=== PATIENT | female | born 1995 | race Caucasian/White ===

== ENCOUNTER → 2017-02-17 | Outpatient (CLI) | payer OTHER ==
[~2017-02-17] MED LIST: ALBUAER2 INH
== END | disposition home or self-care (01) ==
LOC: C.PAPS 11:25
PROVIDERS: ATTEND Obstetrics & Gynecology
DX: Z12.4 Encounter for screening for malignant neoplasm of cervix (principal); R87.612 Low grade squamous intraepithelial lesion on cytologic smear of cervix (LGSIL)

== ENCOUNTER → 2017-02-17 | Outpatient (CLI) | payer OTHER ==
[2017-02-19 00:33] LABS: CHLAMYDIA TRACH RNA*** NOT DETECTED (NOT DETECTED); GC (NEIS GONORRHOEAE)RNA** NOT DETECTED (NOT DETECTED)
== END | disposition home or self-care (01) ==
LOC: C.LABSPEC 10:55
PROVIDERS: ATTEND Obstetrics & Gynecology
DX: Z01.419 Encounter for gynecological examination (general) (routine) without abnormal findings (principal)

== ENCOUNTER → 2018-02-25 | Outpatient (CLI) | payer OTHER | END | disposition home or self-care (01) | LOC: C.LABSPEC 14:00 | PROVIDERS: ATTEND Obstetrics & Gynecology | DX: Z12.4 Encounter for screening for malignant neoplasm of cervix (principal); Z11.51 Encounter for screening for human papillomavirus (HPV) ==

== ENCOUNTER 2022-04-17 05:36 | Inpatient (IN) ==
--- NOTE | 2022-04-10 15:34 | History & Physical Report ---
Date of Service April 10, 2022 Assessment & Plan (1) Previous delivery affecting , antepartum: Plan: IUP at 39 weeks with prior section because of nonreassuring heart rate pattern at 41 weeks gestation. Short interpregnancy interval. Patient is scheduled for repeat section. The procedure and its risks were reviewed with the patient and all of her questions were answered to her satisfaction and she is willing to proceed. History of Present Illness Primary Care Provider: Tio Lea MD Patient is a 26-year-old 2 para 1-0-0-1 female EDC 04/24/2022 who presents at 39 weeks for repeat section. otherwise has been uncomplicated other than she has had a short interpregnancy interval. Prior section was done because of nonreassuring heart rate pattern. She also had issues with adequate pain relief with her epidural. GBS is negative. Allergies Allergy/AdvReac Type Severity Reaction Status Date / Time No Known Drug Allergies Allergy Verified 04/09/22 08:49 Home Medications Medication Instructions Recorded Confirmed Type prenat.vits,abena,whm-lzkq-htzvo 1 tab PO DAILY 02/01/20 04/09/22 History Patient History Medical History LGSIL on Pap smear of cervix Pneumonia Seasonal allergies Varicella vaccine Surgical History (Updated 09/08/21 @ 09:57 by Park Law) H/O myringotomy H/O wisdom tooth extraction S/P section S/P tonsillectomy and adenoidectomy Family History (Updated 09/08/21 @ 09:51 by Park Law) Grandmother (Maternal) Breast cancer Hypertension Diabetes Aunt Breast cancer Denies family history of Ovarian cancer Colorectal cancer Social History (Updated 09/08/21 @ 09:52 by aPrk Law) Smoking Status: Never smoker Second Hand Exposure: No; Hx Alcohol Use: No Hx Substance Use: No Preferred Language: Urdu Communication Ability: Effective Beliefs That Will Affect Care: None marital status: marital status details: Kirk Ann (26) [phone] Current Living Situation: Spouse and Family Current Living Situation Comment: lives with spouse, child, 1 dog, 1 cat, spouse to change litter. 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
--- NOTE | 2022-04-13 11:35 | Anesthesiology Consultation ---
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 Patient is fully vaccinated for COVID. No known Covid positive exposures or Covid related symptoms. Pt did test Covid positive 02/27/22. At the time - patient had SOB, body aches and cough- symptoms have since resolved. Per 90 day protocol, patient does not need additional preop Covid testing or additional Covid precautions. History Surgery Operation Date: 04/17/22 09:00 Proposed Procedures p Section (Delivery of Baby Through Abdominal Incision) - Leann Kelly MD, FACOG Height/Weight Height: 5 ft 4 in Weight: 68.039 kg Allergies Allergy/AdvReac Type Severity Reaction Status Date / Time No Known Drug Allergies Allergy Verified 04/13/22 10:49 Medications Home Medications Medication Instructions Recorded Confirmed Last Taken prenat.vits,abena,dgi-ushq-nnywb 1 tab PO DAILY 02/01/20 04/13/22 1 Day Ago ~02/06/21 Past Medical History Medical History History of COVID-19 February- TESTED @ [facility] -COUGH, SOB, BODY ACHES, NO CURRENT ISSUES Seasonal allergies Past Family History Family History Grandmother (Maternal) Breast cancer Hypertension Diabetes Aunt Breast cancer Denies family history of Ovarian cancer Colorectal cancer Past Surgical History Surgical History H/O myringotomy H/O wisdom tooth extraction S/P section S/P tonsillectomy and adenoidectomy Social History Smoking Status: Never smoker Do You Dip or Chew Tobacco: No Hx Alcohol Use: No Hx Substance Use: No substance use type: does not use
[2022-04-17] MEDS ORDERED: LACTATED RINGER'S 1,000 ML IV SCH ×2 (05:45→06:00)
[2022-04-17] MEDS ORDERED: CITRIC ACID/SODIUM CITRATE 15 ML UDC PO SCH (06:00)
[2022-04-17] MEDS ORDERED: ceFAZolin 2,000 MG in SYRINGE 0 ML IV SCH (06:00)
[2022-04-17 06:29] LABS: Hematocrit (blood only) 33.4 % (37-47); Hemoglobin 11.1 g/dL (12.0-16.0); Mean Corpuscular Hemoglobin 30.6 pg (25-34); Mean Corpuscular Hgb Conc 33.2 g/dL (32-36); Mean Platelet Volume 10.3 fL (7.4-10.4); Platelet Count 275 K/uL (130-400); RDW Coefficient of Variation 13.8 % (11.5-14.5); RDW Standard Deviation 46.1 fL (36.4-46.3); Red Blood Count 3.63 M/uL (4.2-5.4); White Blood Count 14.92 K/uL (4.8-10.8)
[2022-04-17] MEDS ORDERED: MoRPHine SULFATE PF 1 MG/ML 10 ML AMP/VIAL ONE (06:52)
[2022-04-17] MEDS ORDERED: ONDANSETRON INJ 2 MG/ML 2 ML VIAL ONE (07:17)
[2022-04-17] MEDS ORDERED: OXYTOCIN 10 UNITS/ML 10ML VIAL ONE (07:17)
[2022-04-17] MEDS ORDERED: LIDOCAINE 2% MPF LOCAL 5 ML VIAL INFIL ONE (07:17)
[2022-04-17] MEDS ORDERED: METOCLOPRAMIDE HCL INJ 5 MG/ML 2 ML VIAL ONE (07:17)
[2022-04-17] MEDS ORDERED: PROPOFOL IV EMULSION 10 MG/ML 20 ML VIAL IV ONE (07:17)
[2022-04-17] MEDS ORDERED: LIDOCAINE/EPINEPHRINE 1% 20 ML VIAL ONE (07:28)
[2022-04-17] MEDS ORDERED: TRIAMCINOLONE ACET 40 MG/ML VIAL IM ONE (07:29)
--- NOTE | 2022-04-17 07:30 | History & Physical Bridge Note ---
Date of Service April 17, 2022 History & Physical Bridge Note I have examined the patient, reviewed the History & Physical and in the interval since the performance of the History & Physical I have noted the following changes of clinical significance: no changes noted
[2022-04-17 07:41] LABS: ALC (manual) 2.73 K/uL (1.2-3.4); ANC (manual) 9.98 K/uL (1.4-6.5); Eosinophils # (manual) 0.25 K/uL (0-0.5); Eosinophils % (manual) 1.7 %; Lymphocytes # (manual) 2.73 K/uL (1.2-3.4); Lymphocytes % (manual) 18.3 %; Monocytes # (manual) 1.82 K/uL (0.11-0.59); Monocytes % (manual) 12.2 %; Myelocytes # (manual) 0.13 K/uL (0-0); Myelocytes % (manual) 0.9 %; Neutrophils # (manual) 9.98 K/uL (1.4-6.5); Neutrophils % (manual) 66.9 %
[2022-04-17] MEDS ORDERED: NALOXONE HCL 0.08 MG in SYRINGE 1.8 ML IV PRN (08:09)
[2022-04-17] MEDS ORDERED: NALBUPHINE HCL INJ 10 MG/ML AMP IV PRN (08:09)
[2022-04-17] MEDS ORDERED: PROMETHAZINE HCL 12.5 MG in SODIUM CHLORIDE 0.9% 50 ML IV PRN (08:09)
[2022-04-17] MEDS ORDERED: NALOXONE HCL 1 MG in SODIUM CHLORIDE 0.9% 1000ML 1,000 ML IV PRN (08:09)
[2022-04-17] MEDS ORDERED: MoRPHine SULFATE PF 1 MG/ML 10 ML AMP/VIAL INT SPINAL ONE (08:09)
[2022-04-17] MEDS ORDERED: ePHEDrine sulfate 50 MG/ML AMP IV PRN (08:09)
[2022-04-17] MEDS ORDERED: diphenhydrAMINE 50 MG/ML VIAL IV PRN ×2 (08:09→09:02)
[2022-04-17] MEDS ORDERED: LACTATED RINGER'S 500 ML IV PRN (08:09)
[2022-04-17] MEDS ORDERED: ONDANSETRON INJ 2 MG/ML 2 ML VIAL IV PRN (08:09)
[2022-04-17] MEDS ORDERED: NALOXONE HCL 0.4 MG/1 ML VIAL/CARP IV PRN (08:09)
[2022-04-17] MEDS ORDERED: MoRPHine SULFATE 2 MG/ML CARP IV PRN (08:09)
[2022-04-17] MEDS ORDERED: PHENYLEPHRINE 100MCG/ML 5ML SYR ONE (08:14)
[2022-04-17] MEDS ORDERED: ePHEDrine sulfate 50 MG/ML SYR ONE (08:14)
[2022-04-17] MEDS ORDERED: NO NARCOTICS OR SEDATIVES SCH (08:15)
[2022-04-17] MEDS ORDERED: SODIUM CHLORIDE 0.9% 1000ML 1,000 ML IV SCH (08:15)
[2022-04-17] MEDS ORDERED: DC INTRASPINAL MORPHINE SCH (08:15)
--- NOTE | 2022-04-17 08:41 | Post Operative Brief Note ---
PG Immediate Post Op with CF Date of Surgery April 17, 2022 Pre & Post Diagnosis Operation Date: 04/17/22 07:30 Pre-Op Diagnosis: Prior section, desires repeat Post-Op Diagnosis: Same as pre-op I identified the patient and participated in the time-out.: Yes Procedure Operation Date: 04/17/22 07:30 Actual Procedures p Repeat Section, Live male child at 0803(Bilateral) - Leann Coles MD, FACOG Surgeon Leann Kelly MD, FACOG Training And Development Head Marielle Carrington MD Estimated Blood Loss 500 Findings Consistent with Post-Op Diagnosis Specimens Specimen Description: A: Placenta-hold B: Cord blood Drains Franco Catheter (Inserted after spinal, patent and draining clear yellow urine throughout procedure) Anesthesia Type Spinal Complications none Disposition Accompanied Patient To Recovery: Yes
[2022-04-17] MEDS ORDERED: PRENATAL VITAMIN 1 TAB PO SCH (09:00)
[2022-04-17] MEDS ORDERED: SENNA 8.6 MG TAB PO PRN (09:02)
[2022-04-17] MEDS ORDERED: MAGNESIUM HYDROXIDE SUSP 30 ML UDC PO PRN (09:02)
[2022-04-17] MEDS ORDERED: HYDROCORTISONE ACETATE 25 MG SUPP PR PRN (09:02)
[2022-04-17] MEDS ORDERED: BENZOCAINE 20% AER SPR 82.5 GM CAN EXT PRN (09:02)
--- NOTE | 2022-04-17 09:31 | Operative Report ---
PG Post Operative Report Pre & Post Diagnosis Operation Date: 04/17/22 07:30 Pre-Op Diagnosis: Prior section, desires repeat Post-Op Diagnosis: Same as pre-op I identified the patient and participated in the time-out.: Yes Procedure Operation Date: 04/17/22 07:30 Actual Procedures p Repeat Section, Live male child at 0803(Bilateral) - Leann Coles MD, FACOG Surgeon Leann Kelly MD, FACOG Nutritionalist Marielle Carrington MD Estimated Blood Loss 500 Findings Consistent with Post-Op Diagnosis Gravid uterus consistent with term in size. Bilateral ovaries all the tubes were grossly normal. Specimens placenta Drains Franco to straight drainage Anesthesia Type Spinal Complications none Disposition Accompanied Patient To Recovery: Yes Disposition: L&D Indications Patient is a 2 para 1-0-0-1 white female EDC of 04/24/2022 who presents at 39 weeks for repeat section. Prior section was done because of arrest of descent. Description of Procedure After the patient received adequate subarachnoid block she was prepped and d raped in usual sterile fashion. A low transverse incision was made below her prior scar. The fascia was then entered with a scalpel and extended with Cox scissors. The edges were then grasped with Jojo clamps and the underlying rectus muscles bluntly sharply dissected off of the overlying fascia. The rectus muscles were then divided with a scalpel. The abdominal cavity was entered at this time. Taking care to bluntly dissect the bladder off of the rectus muscles, the rectus muscles were divided with Metzenbaum scissors. The bladder was then taken down off the anterior surface of the uterus. Was placed behind the bladder blade. The lower uterine segment was then entered with a scalpel and extended transversely. Membranes were ruptured for clear fluid. The infant was delivered from the vertex presentation with moderate fundal pressure. The rest of the delivered easily and was vigorous upon delivery. The cord was clamped and cut and the infant handed off to the nursery team for further evaluation. Placenta was then manually removed and the uterus exteriorized and covered with a clean lap sponge. The uterine cavity was explored and found to be free of any placental tissue or membranes. Uterus was closed in 2 layers in a running locking imbricating fashion with 0 Monocryl. A bleeding site in the center of the incision was secured with a infwdl-xp-eoqpo stitch of the same. At this point hemostasis was noted be excellent. Posterior cul-de-sac was evaluated and a small amount of blood and fluid were suctioned. The uterine incision was examined once more continue to have excellent hemostasis. Uterus was then placed back inside the abdominal cavity. The gutters were noted to be free of any fluid or clot bilaterally. The incision was examined once more continue to have satisfactory hemostasis. The rectus muscle were then brought together in the midline with individual stitches of 0 Monocryl. The fascia was closed in a running fashion with 0 Vicryl. At this time the prior keloid scar on the skin incision was removed with a scalpel. After irrigating the adipose layer, the skin edges were reapproximated using a subcuticular stitch of 4-0 Vicryl.A combination of Kenalog and lidocaine with epi was then injected into the skin incision to deter further keloid formation. Mother and infant were doing well after delivery and were stable condition upon arrival back in labor and delivery. I attest to the content of the Intraoperative Record and any orders documented therein. Any exceptions are noted below. OB Procedure Charges 90778
[2022-04-17] MEDS: KETOROLAC 30 MG/ML VIAL IV PRN ×2 (11:10→19:04)
[2022-04-17] MEDS: OXYTOCIN 20 UNITS in LACTATED RINGER'S 1,000 ML IV SCH ×2 (11:22→19:58)
[2022-04-17] MEDS: DIPHTHERIA/TETANUS/PERTUSSIS 0.5 ML SYR/VIAL IM ONE ×2 (12:38→12:52)
[2022-04-17] MEDS: LACTATED RINGER'S 1,000 ML IV SCH ×2 (12:39→22:55)
[2022-04-17] MEDS: FLUCONAZOLE 50 MG TAB PO SCH (12:51)
[2022-04-17] MEDS: SIMETHICONE 80 MG CHEW PO SCH ×3 (13:30→21:11)
--- NOTE | 2022-04-17 14:28 | Anesthesiology Progress Note ---
Date of Service April 17, 2022 Anesthesia Post Procedure Vital Signs Vital Signs: Temp Pulse Resp BP Pulse Ox 04/17/22 11:46 113 H 89 L 04/17/22 11:45 113 H 100 04/17/22 11:40 76 99 04/17/22 11:35 91 H 100 04/17/22 11:30 89 100 04/17/22 11:25 108 H 100 04/17/22 11:22 90 108/60 04/17/22 11:20 81 100 04/17/22 11:15 86 100 04/17/22 11:12 90 106/61 04/17/22 11:10 96 H 100 04/17/22 11:05 96 H 100 04/17/22 11:02 109 H 111/62 04/17/22 11:00 108 H 100 04/17/22 10:55 73 100 04/17/22 10:52 81 108/58 L 04/17/22 10:50 72 100 04/17/22 10:45 78 100 04/17/22 10:42 76 104/58 L 04/17/22 10:40 78 100 04/17/22 10:35 87 100 04/17/22 10:32 81 103/64 04/17/22 10:30 92 H 98 04/17/22 10:25 83 98 04/17/22 10:22 95 H 105/63 04/17/22 10:20 108 H 98 04/17/22 10:15 79 98 04/17/22 10:12 104 H 105/68 04/17/22 10:10 87 98 04/17/22 10:05 88 97 04/17/22 10:03 80 93 04/17/22 10:02 83 105/59 L 04/17/22 10:00 92 H 97 04/17/22 09:55 80 96 04/17/22 09:52 74 104/55 L 04/17/22 09:50 90 96 04/17/22 09:46 90 94 04/17/22 09:45 91 H 96 04/17/22 09:42 83 115/57 L 04/17/22 09:41 102 H 93 04/17/22 09:40 114 H 95 04/17/22 09:36 95 H 94 04/17/22 09:35 99 H 95 04/17/22 09:32 82 108/55 L 04/17/22 09:31 98 H 93 04/17/22 09:30 85 95 04/17/22 09:28 36.4 C L 16 04/17/22 09:27 86 117/56 L 04/17/22 09:25 101 H 94 04/17/22 09:24 103 H 94 04/17/22 09:20 89 95 04/17/22 09:16 88 94 04/17/22 09:15 84 95 04/17/22 09:12 83 105/52 L 04/17/22 09:11 89 94 04/17/22 09:10 94 H 95 04/17/22 09:05 90 93 04/17/22 09:02 76 114/59 L 04/17/22 09:00 99 H 100 04/17/22 08:56 36.0 C L 18 04/17/22 08:55 98 H 99 04/17/22 08:51 78 126/56 L 04/17/22 08:50 96 H 81/51 L 99 04/17/22 08:48 82 98/49 L 04/17/22 08:45 90 100 04/17/22 07:15 37.0 C 16 04/17/22 07:05 36.6 C 04/17/22 05:56 98 H 110/55 L 04/17/22 05:53 18 Transfer of Care Handoff Completed per policy Notes Mental Status: alert / awake / arousable Patient Amnestic to Procedure: Yes Nausea / Vomiting: adequately controlled Pain: adequately controlled Airway Patency, RR, SpO2: stable & adequate BP & HR: stable & adequate Hydration State: stable & adequate Anesthetic Complications: no major complications apparent
[2022-04-17] MEDS: DOCUSATE SODIUM 100 MG CAP PO SCH (21:11)
[2022-04-18] MEDS ORDERED: PROMETHAZINE HCL 25 MG in SODIUM CHLORIDE 0.9% 50 ML IV PRN (02:10)
[2022-04-18] MEDS ORDERED: ONDANSETRON INJ 2 MG/ML 2 ML VIAL IV PRN (02:10)
[2022-04-18] MEDS ORDERED: diphenhydrAMINE Capsule 25 MG CAP PO PRN (02:10)
[2022-04-18] MEDS ORDERED: MEPERIDINE HCL 50 MG/ML CARP IV PRN (02:10)
[2022-04-18] MEDS ORDERED: KETOROLAC 30 MG/ML VIAL IV PRN (02:10)
[2022-04-18 07:32] LABS: Hemoglobin 10.6 g/dL (12.0-16.0); Mean Corpuscular Hemoglobin 30.5 pg (25-34); Mean Corpuscular Hgb Conc 33.1 g/dL (32-36); Mean Platelet Volume 10.3 fL (7.4-10.4); Platelet Count 277 K/uL (130-400); RDW Coefficient of Variation 13.9 % (11.5-14.5); RDW Standard Deviation 45.9 fL (36.4-46.3); Red Blood Count 3.48 M/uL (4.2-5.4); White Blood Count 20.09 K/uL (4.8-10.8)
[2022-04-18 08:01] LABS: ALC (manual) 1.93 K/uL (1.2-3.4); ANC (manual) 16.94 K/uL (1.4-6.5); Lymphocytes # (manual) 1.93 K/uL (1.2-3.4); Lymphocytes % (manual) 9.6 %; Monocytes # (manual) 1.23 K/uL (0.11-0.59); Monocytes % (manual) 6.1 %; Neutrophils # (manual) 16.94 K/uL (1.4-6.5); Neutrophils % (manual) 84.3 %; RBC Morphology Unremarkable
--- NOTE | 2022-04-18 08:51 | Obstetrical Progress Note ---
Date of Service April 18, 2022 Assessment & Plan (1) Postcesarean section: Plan: 26yo POD 1 s/p LTCS) at 39 weeks. -Continue routine care -Vitals reviewed- HDS, afebrile -GBS neg -incision site no longer with drainage, dry/clean/intact -Encourage ambulation, advance diet -Pain control with ibuprofen, acetaminophen PRN -Encourage -Hgb 10.6, stable -will continue to monitor, f/u in 6 weeks with OB after discharge Admission and Anticipated Discharge Date Admission Date: April 17, 2022 Supervising Physician Co-Signing Physician Notes Resident Physician Supervision Note: I interviewed and examined the patient. Discussed with Dr. Rowe and agree with findings and plan as documented in the note. Any exceptions or clarifications are listed here: [ ] Documented By: Gaby Alva MD, FACOG Subjective Ambulation: yes Voiding: yes, lujan removed ~0300 Passing Gas: yes BM: no Diet Tolerance: fluids with crackers, denies N/V Lochia: small Feeding Type: Current Pain Level(1-10): 2 Review of Systems Review of Systems: Denies fevers/chills. Denies dyspnea, cough. Denies chest pain. Denies dysuria. Denies headache. Denies back pain. Physical Exam Physical Exam: General: Alert, oriented, no acute distress Cardiac: Regular rate and rhythm, normal S1, S2. No murmurs appreciated. Respiratory: Clear to auscultation b/l with good air flow entry, symmetric chest rise and fall. No wheezes or crackles. No increased work of breathing or accessory muscle use Abdomen: Soft, nontender, nondistended. Fundus firm and palpable at 1 cm below umbilicus. Bandages removed, surgical incision clean, dry and intact without juancarlos thema, warmth or drainage. Bowel sounds appreciated. No guarding or rebound. Skin: No rashes or lesions Extremities: Warm, dry, well-perfused with capillary refill <2s b/l. No lower extremity edema, erythema or swelling. Negative Travis's sign b/l. Results & Data ([facility]) Vital Signs (Past 12 Hours) Vital Signs Temp Pulse Resp BP Pulse Ox 04/18/22 03:10 36.9 C 99 H 18 110/64 99 04/18/22 02:30 16 99 06/11/22 01:30 16 98 04/18/22 00:25 18 98 04/17/22 23:25 36.8 C 103 H 18 109/60 100 04/17/22 22:25 18 97 04/17/22 21:25 16 98 Resident Activity Tracking Resident Involvement: Resident Care Provided Care Provided: OB Delivery
[2022-04-18] MEDS: PRENATAL VITAMIN 1 TAB PO SCH (09:04)
[2022-04-18] MEDS: SIMETHICONE 80 MG CHEW PO SCH ×4 (09:04→20:56)
[2022-04-18] MEDS: IBUPROFEN 600 MG TAB PO PRN ×3 (09:04→17:15)
[2022-04-18] MEDS: FERROUS SULFATE 325 MG TAB PO SCH (09:04)
[2022-04-18] MEDS: DOCUSATE SODIUM 100 MG CAP PO SCH ×2 (09:04→20:56)
[2022-04-18] MEDS: oxyCODONE/ACETAMINOPHEN 5mg/325mg TAB PO PRN ×3 (09:05→17:14)
[2022-04-18] MEDS ORDERED: bisacodyL 5 MG TABEC PO SCH (20:00)
[2022-04-19] MEDS: oxyCODONE/ACETAMINOPHEN 5mg/325mg TAB PO PRN ×2 (00:11→06:34)
[2022-04-19] MEDS: IBUPROFEN 600 MG TAB PO PRN ×2 (00:12→06:34)
[2022-04-19 06:51] LABS: Hematocrit (blood only) 35.1 % (37-47); Hemoglobin 11.5 g/dL (12.0-16.0)
[2022-04-19] MEDS: FERROUS SULFATE 325 MG TAB PO SCH (07:49)
[2022-04-19] MEDS: PRENATAL VITAMIN 1 TAB PO SCH (07:49)
[2022-04-19] MEDS: FLUCONAZOLE 50 MG TAB PO SCH (07:49)
[2022-04-19] MEDS: DOCUSATE SODIUM 100 MG CAP PO SCH (07:49)
[2022-04-19] MEDS: SIMETHICONE 80 MG CHEW PO SCH (07:50)
[2022-04-19] MEDS ORDERED: bisacodyL 10 MG SUPP PR PRN (09:02)
--- NOTE | 2022-04-19 09:18 | Obstetrical Progress Note ---
Date of Service April 19, 2022 Assessment & Plan (1) Postcesarean section: stable post-op progress D/C to home scripts for percocet and Motrin sent to pharmacy Subjective Ambulation: ambulating normally Voiding: no voiding problems Passing Gas:: Yes Diet Tolerance:: regular diet Lochia:: Small Feeding Type:: breast feeding Review of Systems All systems reviewed & are unremarkable except as noted in HPI & below Physical Exam Constitutional WD/WN, vitals as above Gastrointestinal (Abdomen) Inspection/Auscultation: + abdominal surgical incision (dry and intact- no erythema) i Psychiatric A+Ox3, euthymic affect Genitourinary OB Exam Abdomen: + fundal height Fundus: + firm and + relation to umbilicus (2 below) Results & Data ([facility]) Vital Signs (Past 12 Hours) Vital Signs Temp Pulse Pulse Resp BP Pulse Ox 04/19/22 07:46 98.2 F 92 H 16 111/70 04/19/22 00:17 97.3 F L 90 18 103/69 04/18/22 21:20 98.2 F 83 16 97/71 L 97
--- NOTE | 2022-04-20 13:33 | Discharge Summary (DS) ---
DATE OF ADMISSION: 04/17/2022 DATE OF DISCHARGE: 04/19/2022 DISCHARGE DIAGNOSIS: Intrauterine at 39 weeks, prior section, requesting repeat c esarean section. PRINCIPAL PROCEDURE: Repeat low transverse section. HISTORY: The patient is a 26-year-old 2, para 1-0-0-1 female, EDC of 04/24/2022 who presents at 39 weeks for repeat section. This was done without complications. She had an uncomplic ated postop course. She was eating regular diet, voiding and ambulating without difficulty on her fi rst postop day. She remained afebrile throughout her hospital stay. Pain was well relieved with ora l medications. Hemoglobin on admission was 11.1, hematocrit of 33.4. First postop day hemoglobin 10 .6, hematocrit of 32.0. Second postop day hemoglobin 11.5, hematocrit of 35.1. She is being sent ho wi in good condition with prescriptions for Percocet 1 tablet p.o. q.6 hours p.r.n. pain, Motrin 600 mg p.o. q.6 hours p.r.n. pain. She is to be seen in the office in 6 weeks for a followup visit. She is to call for a temperature of 101 degrees or higher, heavy vaginal bleeding, burning with urinatio n, increased redness, drainage or pain in her incision, calf tenderness or any other concerns. Job ID: [id number]
== END 2022-04-19 10:45 | disposition home or self-care (01) | DRG 788 ==
LOC: 4S1 05:36 → EDSTATUS 09:00 → 4E2 11:50

== ENCOUNTER 2025-08-24 05:33 | Inpatient (IN) ==
--- NOTE | 2025-08-14 16:22 | Anesthesiology Consultation ---
Date of Service August 14, 2025 Assessment & Plan (1) Encounter for pre-operative examination: Chart Review Chart Review: data entry representative initiated -Infectious Disease screening: Per PAT nursing assessment on 08/14/25. No known infectious disease contacts in past 10 days or current infectious disease symptoms. No recent travel outside the country. History Surgery Operation Date: 08/24/25 08:50 Proposed Procedures p Section (Delivery of Baby Through Abdominal Incision) - Marielle Carrington MD, FACOG s with Bilateral Tubal Ligation - Marielle Carrington MD, FACOG Height/Weight Height: 5 ft 4 in Weight: 74.843 kg Allergies Allergy/AdvReac Type Severity Reaction Status Date / Time No Known Drug Allergies Allergy Verified 08/14/25 15:40 Medications Home Medications Medication Instructions Recorded Confirmed Last Taken magnesium 250 mg tablet 250 mg PO DAILY 08/14/25 08/14/25 Unknown zcrqumyq-xya-Oi-FA 1 mg 1 tab PO DAILY 08/14/25 08/14/25 Unknown tablet Past Medical History Medical History History of COVID-19 (02/27/22) mild, resolved History of dysplastic nevus LGSIL on Pap smear of cervix Seasonal allergies Past Family History Family History Grandmother (Maternal) Breast cancer Hypertension Diabetes Aunt Breast cancer Mother Breast cancer Denies family history of Ovarian cancer Colorectal cancer Past Surgical History Surgical History H/O myringotomy H/O wisdom tooth extraction History of photorefractive keratectomy (PRK) (2023) S/P section (2021) x2- 2021 S/P tonsillectomy and adenoidectomy Social History Smoking Status: Never smoker Do You Dip or Chew Tobacco: No Hx Alcohol Use: No Hx Substance Use: No substance use type: does not use
--- NOTE | 2025-08-23 09:16 | History & Physical Report ---
Date of Service August 23, 2025 Assessment & Plan (1) 39 weeks gestation of : (2) Previous delivery affecting , antepartum: (3) Encounter for female sterilization procedure: (4) Breech presentation: Plan Plan admission with c/s and tubal. Risks, alt and complications reviewed and consent signed. Pt aware of risks of sterilization like failure, permanence, irreversibility and regret. She desires to proceed. Aware of types of sterilization and desires distal salpingectomies. We will plan injection at end of surgery of incision with kenalog/lidocaine combo as helped prevent keloid last time. History of Present Illness Chief Complaint: planned c/s desires tubal Primary Care Provider: Tio Lea MD 29yo [id number] at 39+wks on day of admission for planned repeat c/s and desires sterilization. Patient with prior c/s x 2 and desires repeat but this time baby also breech. She is sure she is done childbearing and requests tubal as well. PNC c/b 1. prior c/s x 2. 2. desires sterilization 3. GBS pos urine PNL rh pos, ri, gbs +urine OBH: c/s x 2, sab x 1 GYNH: recent nl pap, no stds. Allergies Allergy/AdvReac Type Severity Reaction Status Date / Time No Known Drug Allergies Allergy Verified 08/23/25 08:52 Home Medications Medication Instructions Recorded Confirmed Type magnesium 250 mg tablet 250 mg PO DAILY 08/14/25 08/23/25 History sambolrs-rvv-[id number]-FA 1 mg 1 tab PO DAILY 08/14/25 08/23/25 History tablet Patient History Medical History History of COVID-19 (02/27/22) mild, resolved History of dysplastic nevus LGSIL on Pap smear of cervix Seasonal allergies Surgical History H/O myringotomy H/O wisdom tooth extraction History of photorefractive keratectomy (PRK) (2023) S/P section (2021) x2- 2020, 2021 S/P tonsillectomy and adenoidectomy Family History Grandmother (Maternal) Breast cancer Hypertension Diabetes Aunt Breast cancer Mother Breast cancer Denies family history of Ovarian cancer Colorectal cancer Social History Smoking Status: Never smoker Second Hand Exposure: No; Do You Dip or Chew Tobacco: No; Hx Alcohol Use: No Hx Substance Use: No Preferred Language: Vincentian Communication Ability: Effective Communications Agent Required: No Beliefs That Will Affect Care: None marital status: marital status details: Kirk Ann (30) [phone] Current Living Situation: Spouse and Family Current Living Situation Comment: lives with spouse, 2 children,dog, cat-spouse changingl litter current occupational status: employed 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 Feels Safe at Home: Yes Assistive Devices: None Review of Systems as per Subjective / HPI Physical Exam Constitutional: WD/WN, vitals as above Neck: trachea midline, no thyromegaly Respiratory: normal respiratory effort, lungs clear to auscultation Cardiovascular: Rate/Rhythm: regular rate and regular rhythm Gastrointestinal (Abdomen): Percussion/Palpation: abdomen soft (gravid); abdomen nontender Neurologic: grossly normal Psychiatric: A+Ox3, euthymic affect Genitourinary: fhts 140s, breech Coding Level of Care Code None Diagnoses 39 weeks gestation of Z3A.39 Previous delivery affecting , antepartum O34.219 Encounter for female sterilization procedure Z30.2 Breech presentation O32.1XX0
[2025-08-24] MEDS ORDERED: LACTATED RINGER'S 1,000 ML IV SCH ×2 (05:45→09:46)
[2025-08-24] MEDS: LACTATED RINGER'S 1,000 ML IV SCH (06:00)
[2025-08-24 06:09] LABS: Hematocrit (blood only) 34.2 % (37.0-47.0); Hemoglobin 12.1 g/dl (12.0-16.0); Mean Corpuscular Hemoglobin 32.1 pg (25.0-34.0); Mean Corpuscular Volume 90.7 fL (80.0-100.0); Platelet Count 208 K/uL (130-400); RDW Standard Deviation 43.0 fL (36.4-46.3); Red Blood Count 3.77 M/uL (4.20-5.40); White Blood Count 14.97 K/ul (4.8-10.8)
[2025-08-24] MEDS ORDERED: LIDOCAINE 1% LOCAL 20 ML VIAL INJ ONE (06:18)
[2025-08-24] MEDS ORDERED: DEXAMETHASONE SOD INJ 4 MG/ML VIAL ONE (07:02)
[2025-08-24] MEDS ORDERED: ONDANSETRON INJ 2 MG/ML 2 ML VIAL ONE (07:02)
[2025-08-24] MEDS ORDERED: PHENYLEPHRINE 100MCG/ML 5ML SYR ONE ×2 (07:03→09:02)
[2025-08-24] MEDS ORDERED: PHENYLEPHRINE HCL 25 MG/250 ML NSS IV ONE (07:03)
[2025-08-24] MEDS ORDERED: MoRPHine SULFATE PF 1 MG/ML 10 ML AMP/VIAL ONE (07:03)
--- NOTE | 2025-08-24 07:18 | History & Physical Bridge Note ---
Date of Service August 24, 2025 History & Physical Bridge Note I have examined the patient, reviewed the History & Physical and in the interval since the performance of the History & Physical I have noted the following changes of clinical significance: no changes noted
[2025-08-24] MEDS: ACETAMINOPHEN 500 MG TAB PO SCH (07:22)
[2025-08-24] MEDS: CITRIC ACID/SODIUM CITRATE 15 ML UDC PO SCH (08:28)
[2025-08-24] MEDS ORDERED: MoRPHine SULFATE PF 1 MG/ML 10 ML AMP/VIAL INT SPINAL ONE (08:47)
[2025-08-24] MEDS ORDERED: NALOXONE HCL 0.4 MG/1 ML VIAL/CARP IV PRN (08:47)
[2025-08-24] MEDS ORDERED: HYDROmorphone INJ 0.5 MG/0.5 ML SYR IV PRN (08:47)
[2025-08-24] MEDS ORDERED: NALOXONE HCL 1 MG in SODIUM CHLORIDE 0.9% 1,000 ML IV PRN (08:47)
[2025-08-24] MEDS ORDERED: PROMETHAZINE 6.25 MG/50.25 ML BAG IV PRN (08:47)
[2025-08-24] MEDS ORDERED: NALBUPHINE HCL INJ 10 MG/ML AMP IV PRN (08:47)
[2025-08-24] MEDS ORDERED: LACTATED RINGER'S 500 ML IV PRN (08:47)
[2025-08-24] MEDS ORDERED: NALOXONE HCL 0.08 MG in SYRINGE 1.8 ML IV PRN (08:47)
[2025-08-24] MEDS ORDERED: diphenhydrAMINE 50 MG/ML VIAL IV PRN ×2 (08:47→09:46)
[2025-08-24] MEDS ORDERED: DC INTRASPINAL MORPHINE SCH (09:00)
[2025-08-24] MEDS ORDERED: SODIUM CHLORIDE 0.9% 1,000 ML IV SCH (09:00)
[2025-08-24] MEDS ORDERED: NO NARCOTICS OR SEDATIVES SCH (09:00)
[2025-08-24] MEDS: LIDOCAINE 1%/EPINEPHRINE 1:100,000 50 ML VIAL INFIL ONE (09:22)
[2025-08-24] MEDS: TRIAMCINOLONE ACET 40 MG/ML VIAL IM ONE (09:22)
--- NOTE | 2025-08-24 09:35 | Operative Report ---
Post Operative Report Pre & Post Diagnosis Operation Date: 08/24/25 07:30 <No data on this case meets the specified criteria> 1. 39 wk iup 2. Prior c/section x 2, desires repeat c/s 3. Desires sterilization 4. Breech presentation I identified the patient and participated in the time-out.: Yes Procedure Operation Date: 08/24/25 07:30 <No data on this case meets the specified criteria> Repeat Low Transverse Section, Bilateral tubal ligation via distal salpingectomies. Surgeon Marielle Carrington MD, FACOG Employment Appeals Examiner [employer] Quantitative Blood Loss (QBL) 211 Findings Consistent with Post-Op Diagnosis (viable female, apgars 8,9. normal uterus, tubes and ovaries bilaterally) Fluids 1200 Specimens cord blood Drains lujan Anesthesia Type Spinal Complications none Disposition Accompanied Patient To Recovery: No Disposition: L&D Indications 29yo at 39wks for planned c/s and desires tubal. Description of Procedure The patient was taken to the operating room and identified. After adequate anesthesia was obtained, she was placed in the supine position with a leftward tilt on the operating table and prepped and draped in the usual sterile fashion. A lujan catheter had already been placed. The knife was used to create a Pfannensteil skin incision that was carried down to the underlying layer of fascia. The fascia was nicked in the midline and this opening was extended laterally using Cox scissors. Jojo clamps were placed on the superior and inferior aspect of the fascial incision tenting it upward and the underlying rectus muscles were dissected off the overlying fascia both sharply and bluntly using Cox scissors. The rectus muscles were bluntly in the midline. The peritoneal cavity was bluntly entered into. This opening was stretched. The bladder blade was placed. The vesicouterine peritoneum was elevated and opened up into and the bladder flap was created digitally and bladder blade was replaced. The knife was used to create a hysterotomy and this opening was stretched. The operators hand was placed through the hysterotomy and the bladder blade was removed. The feet were grasped and with fundal pressure the body to level of scapulae was delivered and the arms were swept across the anterior midline. The head was flexed and delivered. The cord was clamped and cut and the 's mouth and nares were bulb suction. The was handed off to the awaiting pediatricians. Cord blood was obtained. The placenta was manually expressed. The uterus was exteriorized and cleared of all clots and debris. Dilute IV Pitocin was begun. The uterine tone was improving. The hysterotomy was closed in a running interlocking fashion using 0 Vicryl followed by a second imbricating layer of 0 Vicryl. The hysterotomy was hemostatic. Attention was turned to the left fallopian tube that was followed out to its fimbriated end. The tube was completely transected to cornua and sent as specimen. The right fallopian tube was identified to its fimbriated end, and transected and sent as well. This was done using the ligasure. The uterus was returned to the abdomen. The gutters were cleared of all clots and debris. The hysterotomy was reinspected and noted to be hemostatic. The fascia was then closed in running fashion using 0 Vicryl. The subcutaneous fat was copiously irrigated and reapproximated using 2-0 chromic. The skin was closed in a subcuticular fashion using 4-0 monocryl. Injected incision with kenalog/lidocaine with epi of approximately 5cc. At this point the procedure was terminated. The patient was transferred to the recovery room in stable condition. All sponge, lap and needle counts are correct x2. I attest to the content of the Intraoperative Record and any orders documented therein. Any exceptions are noted below. OB Procedure Charges [id number] Add on Tubal for C/S
--- NOTE | 2025-08-24 09:42 | Anesthesiology Progress Note ---
Date of Service August 24, 2025 Anesthesia Post Procedure Vital Signs Vital Signs: Temp Pulse Resp BP Pulse Ox 08/24/25 09:39 90 91/59 L 08/24/25 09:37 89 100 08/24/25 07:07 20 08/24/25 07:07 36.6 C 20 08/24/25 07:06 96 H 121/73 08/24/25 05:54 36.9 C 100 H 18 114/71 08/24/25 05:51 18 08/24/25 05:51 36.9 C 18 08/24/25 05:50 100 H 114/71 Transfer of Care Handoff Completed per policy Notes Mental Status: alert / awake / arousable and participated in evaluation Patient Amnestic to Procedure: No Nausea / Vomiting: adequately controlled Pain: adequately controlled Airway Patency, RR, SpO2: stable & adequate BP & HR: stable & adequate Hydration State: stable & adequate Neuraxial Anesthesia: was administered and sensory block is resolving Anesthetic Complications: no major complications apparent and Pt Satisfied with anesthetic care
[2025-08-24] MEDS ORDERED: HYDROCORTISONE ACETATE 25 MG SUPP PR PRN (09:46)
[2025-08-24] MEDS ORDERED: SENNA 8.6 MG TAB PO PRN (09:46)
[2025-08-24] MEDS ORDERED: BENZOCAINE 20% SPRY 85 APPLN/85 GM CAN EXT PRN (09:46)
[2025-08-24] MEDS ORDERED: CALCIUM CARBONATE 500 MG CHEWABLE TAB PO PRN (09:46)
[2025-08-24] MEDS ORDERED: DIPHTHER/TETAN/PERTUS Vaccine (Tdap, Adol/Adult) 0.5mL IM ONE (09:46)
[2025-08-24] MEDS ORDERED: MAGNESIUM HYDROXIDE SUSP 30 ML UDC PO PRN (09:46)
[2025-08-24] MEDS ORDERED: diphenhydrAMINE Capsule 25 MG CAP PO PRN (09:46)
[2025-08-24] MEDS: OXYTOCIN 20 UNITS/LR 1,002 ML IV SCH (10:02)
[2025-08-24] MEDS: KETOROLAC 30 MG/ML VIAL IV SCH (10:04)
[2025-08-24] MEDS: ONDANSETRON INJ 2 MG/ML 2 ML VIAL IV PRN (13:38)
[2025-08-24] MEDS: SIMETHICONE 80 MG CHEW PO SCH (15:45)
[2025-08-24] MEDS: ACETAMINOPHEN 325 MG TAB PO SCH (15:45)
[2025-08-24] MEDS: DOCUSATE SODIUM 100 MG CAP PO SCH (21:03)
[2025-08-25] MEDS ORDERED: PROMETHAZINE 12.5 MG/50.5 ML BAG IV PRN (02:47)
[2025-08-25] MEDS ORDERED: ONDANSETRON INJ 2 MG/ML 2 ML VIAL IV PRN (02:47)
[2025-08-25] MEDS ORDERED: HYDROmorphone INJ 0.5 MG/0.5 ML SYR IV PRN (02:47)
[2025-08-25 06:53] LABS: Hematocrit (blood only) 32.5 % (37.0-47.0); Hemoglobin 11.2 g/dl (12.0-16.0); Immature Granulocytes # (auto) 0.38 K/uL (0.01-0.20); Immature Granulocytes % (auto) 1.8 %; Mean Corpuscular Hemoglobin 31.8 pg (25.0-34.0); Mean Corpuscular Volume 92.3 fL (80.0-100.0); Platelet Count 196 K/uL (130-400); RDW Standard Deviation 43.3 fL (36.4-46.3); Red Blood Count 3.52 M/uL (4.20-5.40); White Blood Count 21.52 K/ul (4.8-10.8)
--- NOTE | 2025-08-25 07:49 | Obstetrical Progress Note ---
Date of Service August 25, 2025 Assessment & Plan (1) care and examination: Plan: 29yo post-op day 1 s/p section Fells well today Continue post- care Encourage ambulation and Pain controlled Vitals and Hgb stable Admission and Anticipated Discharge Date Admission Date: August 24, 2025 Supervising Physician Co-Signing Physician Notes Resident Physician Supervision Note: I was present with Dr. Ryder during the history and exam. I discussed the case with the resident and agree with the findings and plan as documented in the note. Any exceptions or clarifications are listed here: [None] Documented By: Clover Do MD, FACOG Subjective 29yo post-op day 1 s/p section Ambulation: Ambulating normally Voiding: No voiding problems Passing Gas: Yes Diet Tolerance: regular diet Lochia:: Small Feeding Type:: Current Pain Level: 0/10 controlled with Tylenol, Ketorolac Resting comfortably this AM in NAD. Denies MILLARD, CP, SOB, N/V/D, LE pain/swelling. Physical Exam Physical Exam: General: patient resting comfortably, NAD, non-toxic in appearance, answers questions appropriately Skin: warm, dry, intact Heart: S1/S2 heard, regular, no m/r/g Lungs: equal air entry bilaterally, no rales/rhonchi/wheezes Abd: Normoactive BS, soft, NT/ND, uterine fundus firm below umbilicus, incision covered with dressing: pt uncomfortable during dressing removal. clean, dry, and intact from what could be inspected Ext: warm, no clubbing/cyanosis or edema, Travis's neg Neuro: nonfocal, patient AAOx4, speech intact, no facial droop, moving all extremities on command Results & Data Vital Signs (Past 12 Hours) Vital Signs Temp Pulse Resp BP Pulse Ox O2 Del Method 08/25/25 03:30 36.6 C 90 18 115/69 100 Room Air 08/25/25 03:00 16 100 08/25/25 02:00 16 98 08/25/25 01:00 16 97 08/24/25 23:59 16 95 08/24/25 23:05 16 99 08/24/25 22:25 36.8 C 80 16 113/68 98 Room Air 08/24/25 22:00 16 98 08/24/25 21:00 18 96 08/24/25 20:00 18 98 Resident Activity Tracking Resident Involvement: Resident Care Provided Care Provided: OB Delivery
[2025-08-25] MEDS: PRENATAL VITAMIN 1 TAB PO SCH (08:50)
[2025-08-25] MEDS: FERROUS SULFATE 325 MG TAB PO SCH (08:50)
[2025-08-25] MEDS: IBUPROFEN 600 MG TAB PO SCH (08:51)
[2025-08-25] MEDS ORDERED: KETOROLAC 30 MG/ML VIAL IV PRN (09:18)
[2025-08-25 23:15] VITALS: PULSE 77
[2025-08-26 06:34] LABS: Hematocrit (blood only) 31.7 % (37.0-47.0); Hemoglobin 10.6 g/dl (12.0-16.0)
[2025-08-26 08:09] VITALS: BP 113/72; RESP 16; TEMP 97.7; O2SAT 97
--- NOTE | 2025-08-26 08:13 | Obstetrical Progress Note ---
Date of Service August 26, 2025 Assessment & Plan (1) care and examination: stable doing well, desires dc home. instructions reviewed. f/u 6 wk pp check. breast, rhpos, ri. declines script for oxycodone after discussion. Day #:: 2 Subjective Ambulation: ambulating normally Voiding: no voiding problems Passing Gas:: Yes Diet Tolerance:: regular diet Lochia:: Small Feeding Type:: breast feeding no pain issues, has not used any oxycodone wants to go home today. Constitutional: + as per Subjective / HPI Physical Exam Constitutional WD/WN, vitals as above Respiratory normal respiratory effort, lungs clear to auscultation Cardiovascular Rate/Rhythm: regular rate and regular rhythm Gastrointestinal (Abdomen) Inspection/Auscultation: abdomen normal to inspection and + abdominal surgical incision (c/d/i) Percussion/Palpation: abdomen soft Fundus firm 2cm down Musculoskeletal nt calves no edema Neurologic grossly normal Psychiatric A+Ox3, euthymic affect Results & Data Vital Signs (Past 12 Hours) Vital Signs Temp Pulse Resp BP Pulse Ox O2 Del Method 08/26/25 07:30 97.7 F 77 16 113/72 97 Room Air 08/25/25 23:10 97.5 F L 77 18 99/63 L 98 Room Air
[2025-08-26] MEDS: IBUPROFEN 600 MG TAB PO PRN (08:43)
[2025-08-26] MEDS ORDERED: ACETAMINOPHEN 325 MG TAB PO PRN (15:18)
--- NOTE | 2025-08-29 15:28 | Discharge Summary ---
Date of Service August 29, 2025 Admission HPI Per Admitting Provider 29yo [id number] at 39+wks on day of admission for planned repeat c/s and desires sterilization. Patient with prior c/s x 2 and desires repeat but this time baby also breech. She is sure she is done childbearing and requests tubal as well. PNC c/b 1. prior c/s x 2. 2. desires sterilization 3. GBS pos urine PNL rh pos, ri, gbs +urine OBH: c/s x 2, sab x 1 GYNH: recent nl pap, no stds. Discharge Data Consultations 08/24/25 05:35 Consult Anesthesiology Stat Procedures Performed Operation Date: 08/24/25 07:30 Actual Procedures pRepeat Low Transverse Section (Delivery of Baby Through Abdominal Incision) living female child at 0855(Bilateral) - Marielle Carrington MD, FACOG s with Bilateral Tubal Ligation(Bilateral) - Marielle Carrington MD, FACOG Hospital Course (1) care and examination: Plan The patient underwent the above stated procedure without incident and her postoperative course and recovery was uncomplicated. On her postoperative day #2 she was tolerating a regular diet, voiding spontaneously, ambulating without problem and was using oral meds for adequate pain control. Her postoperative hemoglobin was 10.6. She was given written and verbal discharge instructions and told to followup in office at 6wks. She was given appropriate pain medicine prescriptions. Coding Level of Care Code None Diagnoses care and examination Z39.2
== END 2025-08-26 10:45 | disposition home or self-care (01) | DRG 785 ==
LOC: 4S1 05:33 → EDSTATUS 08:50 → 4E2 12:11
PROC: M.PPTLD (2025-08-24 07:30)
DX: O99.824 Streptococcus B carrier state complicating childbirth; Z37.0 Single live birth; O34.211 Maternal care for low transverse scar from previous cesarean delivery; O32.1XX0 Maternal care for breech presentation, not applicable or unspecified; Z3A.39 39 weeks gestation of pregnancy; Z30.2 Encounter for sterilization; Z80.3 Family history of malignant neoplasm of breast